=== PATIENT | male | born 1945 | race Caucasian/White ===

== ENCOUNTER 2016-10-26 11:17 | Inpatient (IN) | payer OTHER, MEDICARE ==
[~2016-10-26] VITALS: Ht 177.8 cm; Wt 71.5 kg
[~2016-10-26 11:17] MED LIST: ASPI81 PO; BYST5TAB2 PO; CLOP75 PO; FISH1000 PO; FOLI1TAB PO; LIPI80TA16 PO; LORT5TAB PO; LOTR5CAP3 PO; PROT40TA PO; TAB-TAB PO
[2016-10-26] MEDS ORDERED: PLAV75TA29 PO (11:37)
[2016-10-26] MEDS ORDERED: GABA100C4 PO ×2 (11:51)
[2016-10-26] MEDS ORDERED: METO50TA PO (11:57)
[2016-10-26] MEDS ORDERED: VENL150T PO (11:57)
[2016-10-26] MEDS ORDERED: ASPI81TA81 (11:57)
[2016-10-26] MEDS ORDERED: TAMS0.4C4 PO (11:57)
[2016-10-26] MEDS ORDERED: ATOR40TA16 PO (11:57)
[2016-10-26] MEDS ORDERED: LOSA50TA PO (11:57)
[2016-10-26] MEDS ORDERED: ZETI10TA5 PO (11:57)
[2016-10-26] MEDS ORDERED: DUTA1CAP2 PO (11:57)
[2016-10-26] MEDS ORDERED: AMLO5TAB2 PO (11:57)
[2016-10-26] MEDS ORDERED: ALPR0.25 PO (11:57)
[2016-10-26 12:01] VITALS: BP 130/87; PULSE 106; RESP 20; TEMP 97.8; O2SAT 99
[2016-10-26] MEDS ORDERED: SODIUM CHLORIDE 0.9% FLUSH 10 ML FLUSH IV FLUSH PRN (12:45)
[2016-10-26] MEDS ORDERED: ONDANSETRON HCL 4 MG/2 ML VIAL IVP PRN (12:45)
[2016-10-26] MEDS: ACETAMINOPHEN 325 MG TAB PO PRN (14:04)
[2016-10-26] MEDS: ALPRAZolam 0.25 MG TAB PO PRN ×2 (14:04→21:02)
[2016-10-26 15:15] LABS: BASOPHIL % 0.2 % (0.0-2.0); EOSINOPHIL % 0.2 % (0.0-4.0); HEMATOCRIT 33.8 % (39.0-51.0); HEMO FLAGS DIFF FINAL; LYMPH % 18.9 % (9.0-44.0); LYMPHOCYTE # 1.6 TH/MM3 (1.0-4.8); MEAN CELL VOLUME 95.2 FL (80.0-100.0); MEAN CORPUSCULAR HEMOGLOBIN 33.4 PG (27.0-34.0); MEAN CORPUSCULAR HGB CONC 35.1 % (32.0-36.0); MONO % 11.2 % (0.0-8.0); NEUT % 69.5 % (16.0-70.0); PLATELET COUNT 250 TH/MM3 (150-450); RED BLOOD COUNT 3.55 MIL/MM3 (4.50-5.90); RED CELL DISTRIBUTION WIDTH 14.1 % (11.6-17.2); WHITE BLOOD COUNT 8.7 TH/MM3 (4.0-11.0)
[2016-10-26 15:21] LABS: INTERNATIONAL NORMALIZED RATIO 0.9 RATIO; PROTHROMBIN TIME - PATIENT 10.3 SEC (9.8-11.6)
[2016-10-26 15:27] LABS: ALT (GPT) 23 U/L (12-78); ANION GAP 9 MEQ/L (5-15); AST (GOT) 19 U/L (15-37); BICARBONATE 26.3 MEQ/L (21.0-32.0); BLOOD UREA NITROGEN 22 MG/DL (7-18); CHLORIDE 96 MEQ/L (98-107); GLOMERULAR FILTRATION RATE 70 ML/MIN (>89); POTASSIUM 4.1 MEQ/L (3.5-5.1); SODIUM (NA) 131 MEQ/L (136-145)
[2016-10-26 15:29] LABS: ALKALINE PHOSPHATASE 53 U/L (45-117); TOTAL BILIRUBIN ADULT 0.3 MG/DL (0.2-1.0)
--- NOTE | 2016-10-26 16:06 | HHI.HP ---
cc: Milton North MD [facility] Service [facility] Hospitalists Primary Care Physician Sherrie Davidson MD Admission Diagnosis Diagnoses: Chief Complaint: epistaxis Travel History International Travel<30 Days: No Contact w/Intl Traveler <30 Da: No Traveled to Known Affected Are: No History of Present Illness 71-year-old male with history of HTN, HLD, CAD s/p stents, PVD, BPH, anxiety, depression, tobacco and alcohol use, presents with a 1 day history of epistaxis. The patient reports yesterday his nose felt congested so he blew his nose then started with significant profuse nasal bleeding. Patient is on aspirin and Plavix. He tried to stop the bleeding on his own for 2 hours with no success therefore he went to the ER in [place], [place]. While in the ER , multiple attempts at nasal packing were performed with continued profuse bleeding and leaking around the nares. ENT Dr. North was contacted from the ER , he recommended transfer to [facility] for IR services not available at [facility]. Patient was seen after his arrival to [facility], bleeding has slowed down , only minimal leakage around the nasal packing however mostly dried blood, no posterior bleeding into the oropharynx. Patient denies any current headache, lightheadedness, dizziness, chest pain, shortness of breath, or abdominal complaints. Review of Systems Constitutional: DENIES: Diaphoretic episodes, Fever, Chills, Dizziness Endocrine: DENIES: Polydipsia, Polyuria, Polyphagia Eyes: DENIES: Blurred vision, Vision loss, Double Vision Ears, nose, mouth, throat: COMPLAINS OF: Epistaxis, DENIES: Throat pain, Running Nose, Odynophagia Respiratory: DENIES: Cough, Sputum production, Shortness of breath Cardiovascular: DENIES: Chest pain, Palpitations, Syncope, Dyspnea on Exertion , Lower Extremity Edema Gastrointestinal: DENIES: Abdominal pain, Constipation, Diarrhea, Nausea, Vomiting Genitourinary: DENIES: Urgency, Dysuria Musculoskeletal: DENIES: Back pain, Neck pain Integumentary: DENIES: Pruritus, Rash Hematologic/lymphatic: DENIES: Bruising, Lymphadenopathy Immunologic/allergic: DENIES: Eczema, Urticaria Neurologic: DENIES: Abnormal gait, Headache, Localized weakness Psychiatric: DENIES: Anxiety, Depression Past Family Social History Past Medical History Hypertension Hyperlipidemia CAD s/p stent BPH Anxiety Depression PVD Past Surgical History Left arm bone tumor resection, benign Cardiac catheterization with stents in 1995 Left carotid endarterectomy in 2010 Bilateral leg angioplasty Reported Medications Dutasteride 0.5mg prn prostate problems Tamsulosin 0.4mg po hs Losartan 50mg daily Gabapentin 100mg in am, 300mg in pm Venlafaxine ER 24hr 150mg po daily Alprazolam 0.25mg po daily prn Metoprolol 50mg po bid Zetia 10mg po daily Amlodipine 5mg po daily Atorvastatin 40mg po hs Aspirin 81mg po daily Paterson-3 Fatty Acids 2000mg daily Plavix 75mg po daily Allergies: Coded Allergies: Penicillin (Verified Allergy, Severe, Confusion, 10/26/16) cold sweats, generalized weakness Active Ordered Medications Current Medications Medications (Trade) Dose Ordered Sig/Hollis Route Start Time Stop Time Status Last Admin (NS Flush) 2 ml UNSCH PRN IV FLUSH 10/26/16 12:45 (NS Flush) 2 ml BID IV FLUSH 10/26/16 21:00 (Tylenol) 650 mg Q4H PRN PO 10/26/16 12:45 10/26/16 14:04 (Zofran Inj) 4 mg Q6H PRN IVP 10/26/16 12:45 (Xanax) 0.25 mg DAILY PRN PO 10/26/16 13:00 10/26/16 14:04 (Norvasc) 5 mg DAILY PO 10/27/16 09:00 (Lipitor) 40 mg HS PO 10/26/16 21:00 (Zetia) 10 mg DAILY PO 10/27/16 09:00 (Neurontin) 100 mg DAILY PO 10/27/16 09:00 (Neurontin) 300 mg HS PO 10/26/16 21:00 (Cozaar) 50 mg DAILY PO 10/27/16 09:00 (Lopressor) 50 mg BID PO 10/26/16 21:00 (Flomax) 0.4 mg HS PO 10/26/16 21:00 (Effexor Xr) 150 mg DAILY PO 10/27/16 09:00 Family History No bleeding disorders in the family Father with heart disease, age 92 Mother with stroke at age 64 Social History Drinks 2 Manhattans every night before dinner (last drink 10/24) Smokes tobacco 1 PPD since teenage years , has 2 adult children Physical Exam Vital Signs Vital Signs Date Time Temp Pulse Resp B/P Pulse Ox O2 Delivery O2 Flow Rate FiO2 10/26/16 15:05 20 10/26/16 12:01 97.8 106 20 130/87 99 Physical Exam GENERAL: Well-nourished, well-developed male patient in NAD. SKIN: Warm and dry. No rash. HEAD: Normocephalic. Atraumatic. EYES: Pupils equal and round. No scleral icterus. No injection or drainage. ENT: Bilateral nasal packing in place with dried blood around nares, no blood in the oropharynx. Mucous membranes pink and moist. NECK: Supple. Trachea midline. CARDIOVASCULAR: Regular rate and rhythm. S1, S2 noted. No murmur appreciated. RESPIRATORY: No accessory muscle use. Clear to auscultation. Breath sounds equal bilaterally. GASTROINTESTINAL: Abdomen soft, non-tender, nondistended. Normoactive bowel sounds x4. MUSCULOSKELETAL: No obvious deformities. Extremities without clubbing, cyanosis , or edema. NEUROLOGICAL: Awake and alert. No obvious cranial nerve deficits. Motor grossly within normal limits. Normal speech. PSYCHIATRIC: Appropriate mood and affect; insight and judgment normal. Laboratory Laboratory Tests Test 10/26/16 14:16 White Blood Count 8.7 Red Blood Count 3.55 Hemoglobin 11.9 Hematocrit 33.8 Mean Corpuscular Volume 95.2 Mean Corpuscular Hemoglobin 33.4 Mean Corpuscular Hemoglobin 35.1 Concent Red Cell Distribution Width 14.1 Platelet Count 250 Mean Platelet Volume 7.5 Neutrophils (%) (Auto) 69.5 Lymphocytes (%) (Auto) 18.9 Monocytes (%) (Auto) 11.2 Eosinophils (%) (Auto) 0.2 Basophils (%) (Auto) 0.2 Neutrophils # (Auto) 6.0 Lymphocytes # (Auto) 1.6 Monocytes # (Auto) 1.0 Eosinophils # (Auto) 0.0 Basophils # (Auto) 0.0 CBC Comment DIFF FINAL Differential Comment Prothrombin Time 10.3 Prothromb Time International 0.9 Ratio Sodium Level 131 Potassium Level 4.1 Chloride Level 96 Carbon Dioxide Level 26.3 Anion Gap 9 Blood Urea Nitrogen 22 Creatinine 1.04 Estimat Glomerular Filtration 70 Rate Random Glucose 123 Calcium Level 8.8 Phosphorus Level 2.7 Magnesium Level 2.0 Total Bilirubin 0.3 Aspartate Amino Transf 19 (AST/SGOT) Alanine Aminotransferase 23 (ALT/SGPT) Alkaline Phosphatase 53 Total Protein 7.1 Albumin 4.1 Result Diagram: 10/26/16 1416 10/26/16 1416 Assessment and Plan Problem List: (1) Severe epistaxis ICD Code: R04.0 Status: Acute Assessment and Plan 71-year-old male with history of HTN, HLD, CAD s/p stents, PVD, BPH, anxiety, depression, tobacco and alcohol use, presents with a 1 day history of epistaxis. Acute Epistaxis: high risk, on anticoagulation with aspirin/Plavix, hold for now. S/p bilateral nasal packing at [facility] ER, Transferred to [facility] per ENT Dr. North for IR services not available at other facility, may need cauterization. Consult Dr. North. Continue nasal packing for now. Control blood pressure. INR 0.9. Monitor H&H, hgb 11.9 currently. Tachycardia: HR 120s, regular rhythm on exam. Check EKG. Hyponatremia: Na 131, likely secondary to alcohol use. Give IVF 500cc NS x1. Repeat BMP in am. CAD/PVD: aspirin/plavix on hold for above. Continue ARB, BB. Hypertension: Chronic, continue patient's Norvasc, Cozaar, Metoprolol. Monitor BP. Hyperlipidemia: Chronic, continue patient's Statin and Zetia. Anxiety/Depression: chronic, continue patient's Xanax prn and Effexor. BPH: chronic, continue patient's Flomax. Alcohol Abuse: drinks 2 liquor beverages daily. Thiamine/folate/MV. CIWA protocol. Tobacco Abuse: 1PPD. Counseled on cessation. Nicotine patch prn. DVT Prophylaxis: teds/SCDs, avoid chemical prophylaxis with epistaxis Written by Mesha Harrison, acting as scribe for Dr. Walker on 10/26/16 at 16: 30. All or portions of this note were transcribed by scribe Mesha Harrison. I, Dr. Kp Walkermus personally performed the history, physical exam, and medical decision making; and confirmed the accuracy of the information in the transcribed note. Authenticated by Dr. Kp Louis on 11/02/16 at 23:46. Discussed Condition With Patient, RN Physician Certification 2 Midnight Certification Type: Admission for Inpatient Services Order for Inpatient Services The services are ordered in accordance with Medicare regulations or non- Medicare payer requirements, as applicable. In the case of services not specified as inpatient-only, they are appropriately provided as inpatient services in accordance with the 2-midnight benchmark. Estimated LOS (days): 3 days is the estimated time the patient will need to remain in the hospital, assuming treatment plan goals are met and no additional complications. Post-Hospital Plan: Home Mesha Harrison PA-C Oct 26, 2016 16:06 Kp Smith MD Nov 02, 2016 23:47
[2016-10-26 16:13] VITALS: BP 114/68; PULSE 124; RESP 20; TEMP 96.5; O2SAT 92
[2016-10-26] MEDS ORDERED: LORazepam 2 MG TAB PO PRN (17:30)
[2016-10-26] MEDS ORDERED: LORazepam 1 MG TAB PO PRN (17:30)
[2016-10-26] MEDS ORDERED: LORazepam 2 MG/ML VIAL IV PUSH PRN ×4 (17:30)
[2016-10-26] MEDS ORDERED: SODIUM CHLORID 0.9% 500 ML INJ 500 ML IV ONE (17:30)
[2016-10-26] MEDS ORDERED: FLUMAZENIL 0.5 MG/5 ML VIAL IV PUSH PRN (17:30)
[2016-10-26 20:30] LABS: HEMATOCRIT 35.3 % (39.0-51.0); REVIEW FLAG FINAL
[2016-10-26 20:54] VITALS: BP 106/73; PULSE 104; RESP 18; TEMP 98.2; O2SAT 93
[2016-10-26] MEDS: ATORVASTATIN 40 MG TAB PO SCH (20:56)
[2016-10-26] MEDS: GABAPENTIN 100 MG CAP PO SCH (20:56)
[2016-10-26] MEDS: METOPROLOL TARTRATE 50 MG TAB PO SCH (20:56)
[2016-10-26] MEDS: TAMSULOSIN HCL 0.4 MG CAP PO SCH (20:57)
[2016-10-26] MEDS: NICOTINE 21 MG/24 HR PATCH TD PRN (21:03)
[2016-10-27] VITALS (8 sets, daily range): BP systolic 94–169; BP diastolic 59–84; PULSE 77–110; RESP 18–20; TEMP 95.9–98.3; O2SAT 86–100
[2016-10-27 05:19] LABS: AUTOMATED NEUTROPHIL # 5.5 TH/MM3 (1.8-7.7); BASOPHIL % 0.3 % (0.0-2.0); EOSINOPHIL % 0.2 % (0.0-4.0); HEMATOCRIT 34.8 % (39.0-51.0); HEMO FLAGS DIFF FINAL; LYMPH % 20.5 % (9.0-44.0); LYMPHOCYTE # 1.7 TH/MM3 (1.0-4.8); MEAN CELL VOLUME 96.5 FL (80.0-100.0); MEAN CORPUSCULAR HEMOGLOBIN 32.5 PG (27.0-34.0); MEAN CORPUSCULAR HGB CONC 33.7 % (32.0-36.0); PLATELET COUNT 230 TH/MM3 (150-450); RED BLOOD COUNT 3.61 MIL/MM3 (4.50-5.90); RED CELL DISTRIBUTION WIDTH 14.7 % (11.6-17.2); WHITE BLOOD COUNT 8.1 TH/MM3 (4.0-11.0)
[2016-10-27 05:29] LABS: ALKALINE PHOSPHATASE 54 U/L (45-117); ALT (GPT) 22 U/L (12-78); ANION GAP 9 MEQ/L (5-15); AST (GOT) 21 U/L (15-37); BICARBONATE 28.1 MEQ/L (21.0-32.0); BLOOD UREA NITROGEN 15 MG/DL (7-18); CHLORIDE 99 MEQ/L (98-107); GLOMERULAR FILTRATION RATE 71 ML/MIN (>89); POTASSIUM 4.2 MEQ/L (3.5-5.1); SODIUM (NA) 136 MEQ/L (136-145); TOTAL BILIRUBIN ADULT 0.5 MG/DL (0.2-1.0)
--- NOTE | 2016-10-27 08:51 | MB ---
cc: HARIKA WAGNER M.D. DATE OF CONSULTATION: October 26, 2016. Requested by the ER staff. REASON FOR ENT CONSULTATION Epistaxis. HISTORY OF PRESENT ILLNESS Fernando Ford is a previously healthy 71-year-old man. He states he has had no history of nasal problems, no trauma or surgery. He denies nasal allergies or obstruction. His sense of smell is normal. However, after sensing some congestion in his nose early in the morning on October 26, he states he tried to blow his nose and began bleeding from the left side. He tried to control it at home for more than an hour before proceeding to the [facility] Emergency Room. There numerous attempts at control were made with rapid rhino balloons including bilateral 7.5 cm packs which have effectively obtained control of the bleeding. I was contacted by the [facility] ER to consider transfer of the patient to [facility], however, they did not have interventional radiology available there, so I asked them to instead transfer the patient to [facility]. Since his arrival here he has had no further bleeding, although he remains packed bilaterally. The patient has history of coronary artery disease and has stents placed many years ago. He has been managed since that time with Plavix and aspirin on a regular basis and has had no previous problems due to those medications. PAST MEDICAL HISTORY Medical history significant for: 1. Hypertension. 2. Anxiety. 3. Prostate hypertrophy. PAST SURGICAL HISTORY His surgical history is significant for: 1. Stent placement in 1995. 2. Left carotid endarterectomy in 2010. 3. Bilateral lower extremity vascular surgery. ALLERGIES PENICILLIN. PHYSICAL EXAMINATION GENERAL: He is alert and cooperative. VITAL SIGNS: Temperature is 98 degrees, pulse 100, respirations 18, BP 132/88, pulse oximetry 99% on room air. HEAD: Normocephalic, atraumatic. ORAL CAVITY: There is some streaks of dry blood in the oropharynx. No mucosal lesions noted. NECK: No nodes or masses. EARS: Normal auricles, ear canals and tympanic membranes. NOSE: Packed bilaterally with dark clotted blood around the left naris. There is no dripping blood. LABORATORY On admission his white count was 8.7, hemoglobin 11.9, hematocrit 33.8. ASSESSMENT Epistaxis likely due to long-term Plavix use and nasal dryness. PLAN Discussed with the patient and the ER staff, recommend we leave these packs in place for 24 hours. I will return and remove them at that time. In the meantime he will be placed on Humidified 02 supplementation and clear liquid diet. MD SEAN Andrew/JAMARCUS /8:09 AM /8:36 AM
[2016-10-27] MEDS: FOLIC ACID 1 MG TAB PO SCH (09:00)
[2016-10-27] MEDS: EZETIMIBE 10 MG TAB PO SCH (09:00)
[2016-10-27] MEDS: MULTIVITAMINS/MINERALS THERAPEUTIC TAB PO SCH (09:05)
[2016-10-27] MEDS: THIAMINE HCL 100 MG TAB PO SCH (09:05)
[2016-10-27] MEDS: GABAPENTIN 100 MG CAP PO SCH ×2 (09:05→22:01)
[2016-10-27] MEDS: METOPROLOL TARTRATE 50 MG TAB PO SCH ×2 (09:05→21:00)
[2016-10-27] MEDS: amLODIPine BESYLATE 5 MG TAB PO SCH (09:05)
[2016-10-27] MEDS: VENLAFAXINE HCL XR 75 MG CAP PO SCH (09:05)
[2016-10-27] MEDS: LOSARTAN 50 MG TAB PO SCH (09:05)
--- NOTE | 2016-10-27 13:26 | HHI.PR ---
Subjective Remarks Patient denies epistaxis nasal packing removed earlier today by ENT Righ nare not bleeding anymore Left nare was repacked sodium improved denies cp/sob denies fevers stable vital signs Objective Vitals Vital Signs Date Time Temp Pulse Resp B/P Pulse Ox O2 Delivery O2 Flow Rate FiO2 10/27/16 11:23 96.5 77 18 108/61 94 10/27/16 08:33 95.9 110 18 169/84 100 10/27/16 08:19 94 Face Tent 50 10/27/16 04:10 98.3 102 18 103/72 89 10/27/16 00:01 97.9 90 20 111/59 86 10/26/16 20:54 98.2 104 18 106/73 93 10/26/16 16:13 96.5 124 20 114/68 92 10/26/16 15:05 20 Result Diagram: 10/27/16 0430 10/27/16 0450 Objective Remarks GENERAL: Well-nourished, well-developed male patient in NAD. SKIN: Warm and dry. No rash. HEAD: Normocephalic. Atraumatic. EYES: Pupils equal and round. No scleral icterus. No injection or drainage. ENT: Bilateral nasal packing in place with dried blood around nares, no blood in the oropharynx. Mucous membranes pink and moist. NECK: Supple. Trachea midline. CARDIOVASCULAR: Regular rate and rhythm. S1, S2 noted. No murmur appreciated. RESPIRATORY: No accessory muscle use. Clear to auscultation. Breath sounds equal bilaterally. GASTROINTESTINAL: Abdomen soft, non-tender, nondistended. Normoactive bowel sounds x4. MUSCULOSKELETAL: No obvious deformities. Extremities without clubbing, cyanosis , or edema. NEUROLOGICAL: Awake and alert. No obvious cranial nerve deficits. Motor grossly within normal limits. Normal speech. PSYCHIATRIC: Appropriate mood and affect; insight and judgment normal. Medications and IVs Current Medications Medications (Trade) Dose Ordered Sig/Hollis Route Start Time Stop Time Status Last Admin (NS Flush) 2 ml UNSCH PRN IV FLUSH 10/26/16 12:45 (NS Flush) 2 ml BID IV FLUSH 10/26/16 21:00 (Tylenol) 650 mg Q4H PRN PO 10/26/16 12:45 10/26/16 14:04 (Zofran Inj) 4 mg Q6H PRN IVP 10/26/16 12:45 (Xanax) 0.25 mg DAILY PRN PO 10/26/16 13:00 10/26/16 21:02 (Norvasc) 5 mg DAILY PO 10/27/16 09:00 10/27/16 09:05 (Lipitor) 40 mg HS PO 10/26/16 21:00 10/26/16 20:56 (Zetia) 10 mg DAILY PO 10/27/16 09:00 10/27/16 09:00 (Neurontin) 100 mg DAILY PO 10/27/16 09:00 10/27/16 09:05 (Neurontin) 300 mg HS PO 10/26/16 21:00 10/26/16 20:56 (Cozaar) 50 mg DAILY PO 10/27/16 09:00 10/27/16 09:05 (Lopressor) 50 mg BID PO 10/26/16 21:00 10/27/16 09:05 (Flomax) 0.4 mg HS PO 10/26/16 21:00 10/26/16 20:57 (Effexor Xr) 150 mg DAILY PO 10/27/16 09:00 10/27/16 09:05 (Habitrol 21 Mg Patch.24 Hr) 1 patch DAILY PRN TD 10/26/16 17:30 10/26/16 21:03 (Folate) 1 mg DAILY PO 10/27/16 09:00 11/01/16 08:59 10/27/16 09:00 (Vitamin B1) 100 mg DAILY PO 10/27/16 09:00 10/27/16 09:05 (Theragran M Tab) 1 tab DAILY PO 10/27/16 09:00 11/01/16 08:59 10/27/16 09:05 (Romazicon Inj) 0.2 mg Q1M PRN IV PUSH 10/26/16 17:30 (Ativan) 1 mg Q4H PRN PO 10/26/16 17:30 (Ativan Inj) 1 mg Q4H PRN IV PUSH 10/26/16 17:30 (Ativan) 2 mg Q2H PRN PO 10/26/16 17:30 (Ativan Inj) 2 mg Q2H PRN IV PUSH 10/26/16 17:30 (Ativan Inj) 2 mg Q1H PRN IV PUSH 10/26/16 17:30 (Ativan Inj) 2 mg Q15M PRN IV PUSH 10/26/16 17:30 Urinary Catheter: No Vascular Central Line Catheter: No A/P Problem List: (1) Severe epistaxis ICD Code: R04.0 Status: Acute (2) CAD (coronary artery disease) ICD Code: I25.10 Status: Chronic (3) Hyperlipidemia ICD Code: E78.5 Status: Chronic (4) HTN (hypertension) ICD Code: I10 Status: Chronic Assessment and Plan 71-year-old male with history of HTN, HLD, CAD s/p stents, PVD, BPH, anxiety, depression, tobacco and alcohol use, presents with a 1 day history of epistaxis. Acute Epistaxis: high risk, on anticoagulation with aspirin/Plavix, continue hold for now. S/p bilateral nasal packing at [facility], Transferred to [place] per ENT Dr. North for IR services not available at other facility, may need cauterization. Control blood pressure. INR 0.9. Monitor H&H, hgb 11.9 currently. 10/27 Dr North consulted. Appreciate recommendations. Nasal packing was removed and left nare was still bleeding so packing reinserted. Continue to follow recommendations. Tachycardia: Tachycardic symptoms improving. Will check EKG. Hyponatremia: Likely secondary to hypovolemic hyponatremia. Resolved after fluid administration. Sodium 136.. CAD/PVD: aspirin/plavix on hold for above. Continue ARB, BB. Stable Hypertension: Chronic, continue patient's Norvasc, Cozaar, Metoprolol. Monitor BP. Stable. Hyperlipidemia: Chronic, continue patient's Statin and Zetia. Anxiety/Depression: chronic, continue patient's Xanax prn and Effexor. BPH: chronic, continue patient's Flomax. Stable Alcohol Abuse: drinks 2 liquor beverages daily. Thiamine/folate/MV. CIWA protocol. Tobacco Abuse: 1PPD. Counseled on cessation. Nicotine patch prn. DVT Prophylaxis: teds/SCDs, avoid chemical prophylaxis with epistaxis Discharge Planning Continue to monitor and the medical floor. Problem Qualifiers (1) HTN (hypertension): Qualified Code: I10 - Essential hypertension Kp Smith MD Oct 27, 2016 13:26
[2016-10-27] MEDS: ACETAMINOPHEN 325 MG TAB PO PRN (18:05)
[2016-10-27] MEDS: TAMSULOSIN HCL 0.4 MG CAP PO SCH (22:00)
[2016-10-27] MEDS: SODIUM CHLORIDE 0.9% FLUSH 10 ML FLUSH IV FLUSH SCH ×2 (22:01→22:19)
[2016-10-27] MEDS: ATORVASTATIN 40 MG TAB PO SCH (22:01)
[2016-10-28] VITALS: BP 110/75; PULSE 75; RESP 17; TEMP 97.5; O2SAT 94
[2016-10-28 04:00] VITALS: BP 99/74; PULSE 77; RESP 18; TEMP 97.1; O2SAT 97
[2016-10-28 08:00] VITALS: BP 147/87; PULSE 102; RESP 20; TEMP 96.8; O2SAT 98
[2016-10-28] MEDS: FOLIC ACID 1 MG TAB PO SCH (08:19)
[2016-10-28] MEDS: GABAPENTIN 100 MG CAP PO SCH (08:19)
[2016-10-28] MEDS: THIAMINE HCL 100 MG TAB PO SCH (08:19)
[2016-10-28] MEDS: LOSARTAN 50 MG TAB PO SCH (08:19)
[2016-10-28] MEDS: VENLAFAXINE HCL XR 75 MG CAP PO SCH (08:19)
[2016-10-28] MEDS: MULTIVITAMINS/MINERALS THERAPEUTIC TAB PO SCH (08:19)
[2016-10-28] MEDS: amLODIPine BESYLATE 5 MG TAB PO SCH (08:20)
[2016-10-28] MEDS: METOPROLOL TARTRATE 50 MG TAB PO SCH (08:20)
[2016-10-28] MEDS: ALPRAZolam 0.25 MG TAB PO PRN (08:21)
[2016-10-28] MEDS: NICOTINE 21 MG/24 HR PATCH TD PRN (08:26)
[2016-10-28] MEDS: EZETIMIBE 10 MG TAB PO SCH (09:00)
[2016-10-28 10:02] VITALS: O2SAT 96
[2016-10-28] MEDS ORDERED: BACITRACIN TOP OINT 15 GM TUBE ONE (10:19)
[2016-10-28] MEDS ORDERED: OXYMETAZOLINE HCL 0.05% 15 ML NASAL SPRAY ONE (10:19)
[2016-10-28] MEDS ORDERED: LIDOCAINE 1%/EPINEPHrine 1:100,000 SOLN 20 ML VIAL ONE (10:20)
[2016-10-28] MEDS ORDERED: MUPIROCIN 2% OINT 22 GM TUBE ONE (10:37)
[2016-10-28 12:00] VITALS: BP 117/71; PULSE 91; RESP 16; TEMP 96.6; O2SAT 95
[2016-10-28 14:17] LABS: HEMATOCRIT 29.4 % (39.0-51.0); MEAN CELL VOLUME 96.3 FL (80.0-100.0); MEAN CORPUSCULAR HEMOGLOBIN 32.2 PG (27.0-34.0); MEAN CORPUSCULAR HGB CONC 33.4 % (32.0-36.0); PLATELET COUNT 206 TH/MM3 (150-450); RED BLOOD COUNT 3.05 MIL/MM3 (4.50-5.90); RED CELL DISTRIBUTION WIDTH 14.2 % (11.6-17.2); REVIEW FLAG FINAL; WHITE BLOOD COUNT 5.4 TH/MM3 (4.0-11.0)
--- NOTE | 2016-10-28 15:05 | HHI.DCPOC ---
Discharge Care Plan Diagnosis: (1) Severe epistaxis (2) CAD (coronary artery disease) (3) Hyperlipidemia (4) HTN (hypertension) (5) Hyperglycemia Goals to Promote Your Health * To prevent worsening of your condition and complications * To maintain your health at the optimal level Directions to Meet Your Goals Take your medications as prescribed Follow your dietary instruction Follow activity as directed Keep your appointments as scheduled Take your immunizations and boosters as scheduled If your symptoms worsen call your PCP, if no PCP go to Urgent Care Center or Emergency Room Smoking is Dangerous to Your Health. Avoid second hand smoke Call the 24-hour hour crisis hotline for domestic abuse at Kp Smith MD Oct 28, 2016 15:05
--- NOTE | 2016-10-28 15:26 | HHI.DS ---
cc: Sherrie Davidson MD Discharge Summary Admission Date Oct 26, 2016 at 11:17 Discharge Date: Oct 28, 2016 Admitting Diagnosis (1) Severe epistaxis ICD Code: R04.0 Diagnosis: Principal (2) CAD (coronary artery disease) ICD Code: I25.10 Diagnosis: Secondary (3) Hyperlipidemia ICD Code: E78.5 Diagnosis: Principal (4) HTN (hypertension) ICD Code: I10 Diagnosis: Principal (5) Anemia due to acute blood loss ICD Code: D62 Diagnosis: Principal (6) Hyponatremia ICD Code: E87.1 Diagnosis: Principal (7) Hyperglycemia ICD Code: R73.9 Diagnosis: Principal (8) Alcohol abuse ICD Code: F10.10 Diagnosis: Secondary (9) ETOH abuse ICD Code: F10.10 Diagnosis: Secondary (10) BPH (benign prostatic hyperplasia) ICD Code: N40.0 Diagnosis: Secondary Procedures none Brief History - From Admission 71-year-old male with history of HTN, HLD, CAD s/p stents, PVD, BPH, anxiety, depression, tobacco and alcohol use, presents with a 1 day history of epistaxis. The patient reports yesterday his nose felt congested so he blew his nose then started with significant profuse nasal bleeding. Patient is on aspirin and Plavix. He tried to stop the bleeding on his own for 2 hours with no success therefore he went to the ER in [place], [place]. While in the ER , multiple attempts at nasal packing were performed with continued profuse bleeding and leaking around the nares. ENT Dr. North was contacted from the ER , he recommended transfer to [facility] ED for IR services not available at [facility]. Patient was seen after his arrival to [facility], bleeding has slowed down , only minimal leakage around the nasal packing however mostly dried blood, no posterior bleeding into the oropharynx. Patient denies any current headache, lightheadedness, dizziness, chest pain, shortness of breath, or abdominal complaints. CBC/BMP: 10/28/16 1409 10/27/16 0450 Significant Findings Laboratory Tests Test 10/26/16 10/26/16 10/27/16 10/27/16 14:16 20:12 04:30 04:50 Red Blood Count 3.55 MIL/MM3 3.61 MIL/MM3 (4.50-5.90) (4.50-5.90) Hemoglobin 11.9 GM/DL 12.2 GM/DL 11.7 GM/DL (13.0-17.0) (13.0-17.0) (13.0-17.0) Hematocrit 33.8 % 35.3 % 34.8 % (39.0-51.0) (39.0-51.0) (39.0-51.0) Monocytes (%) (Auto) 11.2 % 11.0 % (0.0-8.0) (0.0-8.0) Monocytes # (Auto) 1.0 TH/MM3 (0-0.9) Sodium Level 131 MEQ/L (136-145) Chloride Level 96 MEQ/L (98-107) Blood Urea Nitrogen 22 MG/DL (7-18) Estimat Glomerular Filtration 70 ML/MIN (>89) 71 ML/MIN (>89) Rate Random Glucose 123 MG/DL 124 MG/DL (74-106) (74-106) Test 10/28/16 14:09 Red Blood Count 3.05 MIL/MM3 (4.50-5.90) Hemoglobin 9.8 GM/DL (13.0-17.0) Hematocrit 29.4 % (39.0-51.0) PE at Discharge GENERAL: Well-nourished, well-developed male patient in [facility]. SKIN: Warm and dry. No rash. HEAD: Normocephalic. Atraumatic. EYES: Pupils equal and round. No scleral icterus. No injection or drainage. ENT: Bilateral nasal packing in place with dried blood around nares, no blood in the oropharynx. Mucous membranes pink and moist. NECK: Supple. Trachea midline. CARDIOVASCULAR: Regular rate and rhythm. S1, S2 noted. No murmur appreciated. RESPIRATORY: No accessory muscle use. Clear to auscultation. Breath sounds equal bilaterally. GASTROINTESTINAL: Abdomen soft, non-tender, nondistended. Normoactive bowel sounds x4. MUSCULOSKELETAL: No obvious deformities. Extremities without clubbing, cyanosis , or edema. NEUROLOGICAL: Awake and alert. No obvious cranial nerve deficits. Motor grossly within normal limits. Normal speech. PSYCHIATRIC: Appropriate mood and affect; insight and judgment normal. Pt update on day of discharge The patient denies chest pain or shortness of breath. Denies dizziness. States he was taken to our to have a septoplasty, however not necessary given that note did not bleed when left nasal packing was removed. Hospital Course 71-year-old male with history of HTN, HLD, CAD s/p stents, PVD, BPH, anxiety, depression, tobacco and alcohol use, presents with a 1 day history of epistaxis. Acute Epistaxis: high risk, on anticoagulation with aspirin/Plavix, continue hold for now. S/p bilateral nasal packing at [facility] ER, Transferred to [place] per ENT Dr. North for IR services not available at other facility. Control blood pressure. INR 0.9. Monitor H&H, hgb 11.9 down to 9.8, Dr. North from ENT consulted. The patient had nasal packing removed 10/27/16 in which the right side of the nose stopped bleeding. Left side of the nose Bleeding, reason why nasal packing was replaced. Patient was taken to the OR on 10/28/16 to have a planned septoplasty, however upon removal of the nasal packing there was no further bleeding. The patient was discharged home with aspirin and Plavix on hold. The patient to follow-up with his PCP to determine when to resume these medications. Patient also advised to follow-up with ENT upon discharge. Tachycardia: Tachycardia resolved. EKG without ischemic changes. Hyponatremia: Likely secondary to hypovolemic hyponatremia. Resolved after fluid administration. Sodium 136.. CAD/PVD: aspirin/plavix on hold for above. Continue ARB, BB. Stable Hypertension: Chronic, continue patient's Norvasc, Cozaar, Metoprolol. Blood pressure was monitored during hospital stay. Blood pressure remained controlled. Hyperlipidemia: Chronic, continue patient's Statin and Zetia. Anxiety/Depression: chronic, continue patient's Xanax prn and Effexor. BPH: chronic, continue patient's Flomax. Stable Alcohol Abuse: drinks 2 liquor beverages daily. Thiamine/folate/MV. CIWA protocol. No evidence of alcohol withdrawal during hospital stay. Tobacco Abuse: 1PPD. Counseled on cessation. Nicotine patch prn. Acute blood loss anemia: Patient presented with low hemoglobin which trended down to 9.8. The patient has been given a prescription to have a CBC done in 2- 3 days. DVT Prophylaxis: teds/SCDs, avoid chemical prophylaxis with epistaxis Pt Condition on Discharge: Stable Discharge Disposition: Discharge Home Discharge Time: > 30 minutes Discharge Instructions DIET: Follow Instructions for: As Tolerated, No Restrictions Activities you can perform: Regular-No Restrictions Activities to Avoid: Concussion Sports, Contact Sports, Prolonged Standing, Strenuous Activity Kp Smith MD Oct 28, 2016 15:26
[2016-10-28 16:00] VITALS: BP 146/68; PULSE 65; RESP 16; TEMP 96.2; O2SAT 96
[2016-10-28 16:33] LABS: HEMOGLOBIN A1a 1.4 %; HEMOGLOBIN A1b 1.4 %; HEMOGLOBIN Ao 85.3 %; HEMOGLOBIN LA1C 2.1 %; HEMOGLOBIN P3 3.8 %
== END 2016-10-28 16:28 | disposition home or self-care (01) | DRG 813 ==
LOC: NEPFCDU 11:17 → HOCA 10-27 20:15
PROVIDERS: ADMIT Hospitalist; ATTEND Hospitalist
PROC: 2Y41X5Z Packing of Nasal Region using Packing Material (ICD-10-PCS; principal; 2016-10-26)
DX: D68.32 Hemorrhagic disorder due to extrinsic circulating anticoagulants (principal); E87.1 Hypo-osmolality and hyponatremia; I10 Essential (primary) hypertension; D62 Acute posthemorrhagic anemia; R04.0 Epistaxis; T45.525A Adverse effect of antithrombotic drugs, initial encounter; I25.10 Atherosclerotic heart disease of native coronary artery without angina pectoris; I73.9 Peripheral vascular disease, unspecified; N40.0 Benign prostatic hyperplasia without lower urinary tract symptoms; R00.0 Tachycardia, unspecified; R73.9 Hyperglycemia, unspecified; F32.9 Major depressive disorder, single episode, unspecified; F41.9 Anxiety disorder, unspecified; F17.200 Nicotine dependence, unspecified, uncomplicated; E78.5 Hyperlipidemia, unspecified; F10.10 Alcohol abuse, uncomplicated; Z79.82 Long term (current) use of aspirin; Z79.02 Long term (current) use of antithrombotics/antiplatelets; Z88.0 Allergy status to penicillin; Z95.5 Presence of coronary angioplasty implant and graft
CPT/HCPCS: 80053; 83036; 83735; 84100; 85014; 85018; 85025; 85027; 85610; J7040